=== PATIENT | male | born 1955 | race Caucasian/White ===

== ENCOUNTER 2017-03-22 13:53 | Day surgery (SDC) | payer OTHER ==
[~2017-03-22] VITALS: Ht 172.7 cm; Wt 83.1 kg
[2017-03-22] MEDS ORDERED: MIDAZOLAM 1 MG/ML 2 ML INJ ONE (15:08)
[2017-03-22] MEDS ORDERED: FENTAnyl 50 MCG/ML VIAL ONE (15:08)
[2017-03-22] MEDS ORDERED: PROPOFOL 0 ML ONE (15:08)
[2017-03-22] MEDS ORDERED: OMEPRAZOLE (15:10)
[2017-03-22] MEDS ORDERED: LISINOPRIL (15:10)
[2017-03-22 15:17] VITALS: Ht 172.7 cm; Wt 83.1 kg
[2017-03-22] MEDS ORDERED: PROPOFOL 20 ML ONE ×2 (15:47→16:29)
[2017-03-22 16:00] VITALS: BP 111/65; PULSE 74; RESP 18
[2017-03-22 16:59] VITALS: BP 118/70; PULSE 66; RESP 19
--- NOTE | 2017-03-22 17:16 | GILP ---
DATE OF PROCEDURE: 03/22/2017 NAME OF PROCEDURES: Colonoscopy, biopsy and polypectomy. SURGEON: Rene Narayanan MD PREOPERATIVE DIAGNOSIS: Screening colonoscopy. POSTOPERATIVE DIAGNOSES 1. Colonoscopy all the way to the cecum. 2. Flat polyp in the rectum was removed using the snare and electrocautery. 3. Three small sigmoid colon polyps were removed using the biopsy forceps. 4. Poor prep making the exam somewhat suboptimal. 4. Internal hemorrhoids. INDICATION FOR THE PROCEDURE: Mr. Asim Wilks is a 62-year-old male patient who was scheduled for s creening colonoscopy. The procedure and possible complications are well explained to the patient, he understood and consen piper to the procedure. DESCRIPTION OF PROCEDURE: Under the influence of anesthesia, the colonoscope was carefully introduc ed in the rectum and under direct vision, it was advanced all the way to the cecum. FINDINGS: The patient had poor prep making the exam somewhat suboptimal. He was noted to have larg e flat polyp in the rectum and it was removed using the snare and electrocautery. The patient also had 3 small sigmoid colon polyps and they were removed using the biopsy forceps. He was noted to berrios ve internal hemorrhoids. He tolerated the procedure very well and there was no complication from the procedure. At the end o f the procedure, he was awake with stable vital signs and he was discharged home to the care of his family. IMPRESSION: 1. Colonoscopy all the way to the cecum. 2. Poor prep making the exam somewhat suboptimal. 3. Large flat polyp in the rectum was removed using the snare and electrocautery. 4. Three small sigmoid colon polyps were removed using the biopsy forceps. 5. Internal hemorrhoids. PLAN: 1. Await histopathology report. 2. The timing of the next colonoscopy will be decided after reviewing the biopsy report. 3. Anyhow, because of the poor prep and suboptimal nature of the examination, would recommend repea t colonoscopy with better preparation in 1 year. Dictated By: RENE MACKENZIE/GENA Conf#: [id number] DID#: [id number]
== END 2017-03-22 17:20 | disposition home or self-care (01) ==
LOC: GIL 13:53
PROVIDERS: ATTEND Internal Medicine Gastroenterology
DX: Z12.11 Encounter for screening for malignant neoplasm of colon (principal); D12.5 Benign neoplasm of sigmoid colon; K62.1 Rectal polyp; I10 Essential (primary) hypertension; F17.200 Nicotine dependence, unspecified, uncomplicated
CPT/HCPCS: 45380; 88305; J2250; J3010; Z7610

== ENCOUNTER 2019-07-11 10:06 | Day surgery (SDC) | payer MEDICARE, OTHER ==
[~2019-07-11] VITALS: Ht 167.6 cm; Wt 83.1 kg
[~2019-07-11 10:06] MED LIST: ABIR250T PO; GABA100C14 PO; GEMF600T8 PO; LEUP3.75 IM; LISINOPRIL; MELO7.5T38 PO; OMEP20CA16 PO; OMEPRAZOLE; PRED25 PO; TIOT4MIS4 INHALATION
[2019-07-11 10:51] VITALS: Ht 167.6 cm; Wt 83.1 kg
[2019-07-11] MEDS ORDERED: GLUCAGON 1 MG INJ ONE (10:59)
--- NOTE | 2019-07-11 11:05 | PREAC ---
Date/Time of Note Date/Time of Note DATE: 07/11/19 TIME: 11:04 Anesthesia Eval and Record Evaluation Time Pre-Procedure Interview DATE: 07/11/19 TIME: 11:04 Age 64 Sex male NPO: 8 hrs Preoperative diagnosis COLON MASS Planned procedure COLONOSCOPY Past Medical History Past Medical History: Includes Cardio: Dyslipidemia Neuro: Peripheral neuropathy Musculoskeletal: Osteoarthritis Renal: Other (PROSTATE CA) Surgery & Anesthesia Issues No known issue Meds Anticoagulation: No Beta Latrice within 24 hr: No Reason Beta Latrice not given: Pt. not on B-Latrice Reported Medications Meloxicam* (Meloxicam*) 7.5 Mg Tablet, 7.5 MG PO DAILY, #30 TAB 07/11/19 Gabapentin* (Gabapentin*) 100 Mg Capsule, 100 MG PO TID, #90 CAP 07/11/19 Abiraterone Acetate (ZYTIGA) 250 Mg Tablet, 250 MG PO, TAB 07/11/19 Prednisone (Prednisone) 2.5 Mg Tab, 2.5 MG PO, TAB 07/11/19 Leuprolide Acetate (Lupron Depot) 3.75 Mg Syringekit, 3.75 MG IM 07/11/19 Tiotropium Br/Olodaterol HCl (Stiolto Respimat Inhal Arnot) 4 Gm Mist.inhal, 2 PUFF INHALATION DAILY, #1 INHALER 07/11/19 Gemfibrozil* (Gemfibrozil*) 600 Mg Tablet, 600 MG PO BID, TAB 07/11/19 Omeprazole* (Omeprazole*) 20 Mg Capsule.dr, 20 MG PO DAILY, #30 CAP 07/11/19 Discontinued Reported Medications [Omeprazole] No Conflict Check 03/22/17 [Lisinopril] No Conflict Check 03/22/17 Meds reviewed: Yes Allergies Coded Allergies: No Known Allergy (Unverified , 03/22/17) Allergies Reviewed: Yes Labs/Studies Labs Reviewed: Reviewed by anesthesiologist test: N/A Pre-procedure Exam Airway: Adequate mouth opening, Adequate thyromental dist Mallampati: Mallampati II Teeth: Normal Lung: Normal Heart: Normal ASA Physical Status ASA physical status: 2 Emergency: None Planned Anesthetic General/MAC: MAC Planned Pain Management Parenteral pain med Pre-operative Attestations Prior to commencing anesthesia and surgery, the patient was re-evaluated, there was verification of: *The patient's identity *The results of appropriate recent lab work and preoperative vital signs *The above evaluation not changing prior to induction *Anesthetic plan, risk benefits, alternative and complications discussed with patient/family; questions answered; patient/family understands, accepts and wishes to proceed. MARITZA VALENTIN Jul 11, 2019 11:05
[2019-07-11] MEDS ORDERED: PROPOFOL 40 ML ONE (11:07)
[2019-07-11] MEDS ORDERED: LIDOCAINE 2% (SDV) 5 ML INJ ONE (11:07)
[2019-07-11] MEDS ORDERED: FENTAnyl 50 MCG/ML VIAL ONE (11:07)
[2019-07-11 11:22] VITALS: BP 125/68; PULSE 69; RESP 18
[2019-07-11 12:28] VITALS: BP 107/61; PULSE 67; RESP 18
--- NOTE | 2019-07-11 20:58 | GILP ---
DATE OF PROCEDURE: 07/11/2019 PROCEDURE PERFORMED: Colonoscopy with polypectomy. INDICATION: A 64-year-old male undergoing this procedure for a flat cecal polyp. The risk of the pr ocedure, related and unrelated complications, anesthetic risks, alternatives were discussed. Informe d consent was obtained. DESCRIPTION OF PROCEDURE: The patient was sedated by Dr. Munoz. Scope was passed with much ease into the rectum. He still had a sticky stool surrounding the mucosa, but 95% visibility was good. Scope was advanced all the way into the cecum. A 2 cm sessile polyp was identified, successfully removed with a cold snare technique, piecemeal polypectomy, underwater technique was used. All the tissues w ere removed. No tissue was left behind. There were 2 other diminutive polyps near the appendix succ essfully removed by jumbo biopsy forceps. While coming out, another polyp was identified at 40 cm gutierrez ccessfully removed by cold snare technique. Third polyp was identified at 20 cm again that was 1 cm in diameter which was successfully removed by cold snare technique. Both the polyps were flat. The polyp at 40 cm was bilobed, each lobe was 1 cm in diameter. Successfully, it was removed and no tiss ue was left behind. The patient had external hemorrhoids and diverticulosis. IMPRESSION: 1. Sessile polyp in the cecum, 2 cm successfully removed by piecemeal polypectomy by cold snare unde rwater technique was used. 2. Three diminutive polyps in the cecum next to the appendix successfully removed by jumbo biopsy fo rceps. 3. Polyp at 40 cm bilobed successfully removed by cold snare technique. No tissue was left behind. Underwater technique was used. Polyp at 20 cm also successfully removed by cold snare technique. N o tissue was left behind. 4. Diverticulosis. 5. Clarity was good and cleanliness was adequate. PLAN: To stay on a fiber diet. We will repeat colonoscopy after 3 years. Dictated By: RUFINO HERMOSILLO/GENA Conf#: [id number] DID#: [id number]
--- NOTE | 2019-07-14 13:42 | PAC ---
Date/Time of Note Date/Time of Note DATE: 07/11/19 TIME: 13:41 Post-Anesthesia Notes Post-Anesthesia Note Last documented vital signs Vital Signs Date Temp Pulse Resp B/P (MAP) Pulse Ox O2 O2 Flow FiO2 Time Delivery Rate 07/11/19 98.0 67 18 107/61 96 Room Air 12:28 (76) Activity: WNL Respiratory function: WNL Cardiovascular function: WNL Mental status: Baseline Pain reasonably controlled: Yes Hydration appropriate: Yes Nausea/Vomiting absent: Yes MARITZA VALENTIN Jul 14, 2019 13:42
== END 2019-07-11 15:06 | disposition home or self-care (01) ==
LOC: GIL 10:06
PROVIDERS: ATTEND Internal Medicine Gastroenterology
DX: D12.0 Benign neoplasm of cecum (principal); K57.30 Diverticulosis of large intestine without perforation or abscess without bleeding; Z85.46 Personal history of malignant neoplasm of prostate
CPT/HCPCS: 45380; 45385; 88305; J1610; J3010